=== PATIENT | male | born 1930 | race Caucasian/White ===

== ENCOUNTER 2017-06-15 11:37 | Emergency (ER) | payer MEDICARE, OTHER ==
[~2017-06-15] VITALS: Ht 172.7 cm; Wt 85.7 kg
[2017-06-15] MEDS ORDERED: KLOR-CON 1010 MEQ PO (11:54)
[2017-06-15] MEDS ORDERED: LOPRESSOR50 PO (11:54)
[2017-06-15] MEDS ORDERED: ELIQUIS2.5 MG PO (11:55)
[2017-06-15] MEDS ORDERED: GABAPENTIN 100100 MG PO (11:55)
[2017-06-15] MEDS ORDERED: PACERONE 200 M200 M1 PO (11:55)
[2017-06-15] MEDS ORDERED: CARDURA4 MG PO (11:55)
[2017-06-15] MEDS ORDERED: LASIX 20 MG TAB20 MG PO (11:56)
[2017-06-15] MEDS ORDERED: LIPITOR 20 MG T20 M1 PO (11:56)
[2017-06-15] MEDS ORDERED: PROAIR HFA8.5 GM INH (11:57)
[2017-06-15] MEDS ORDERED: PROSCAR 5MG TABL5 MG PO (11:57)
[2017-06-15] MEDS ORDERED: VENTOLIN HFA 1818 GM INH (11:58)
[2017-06-15 12:45] LABS: ABSOLUTE EOSINOPHILS 0.1 thou/uL (0.0-0.7); ABSOLUTE LYMPHOCYTES 0.6 thou/uL (0.8-5.3); ABSOLUTE MONOCYTES 0.3 thou/uL (0.0-1.2); ABSOLUTE NEUTROPHILS 2.6 thou/uL (1.6-8.1); BASOPHILS 0.8 %; EOSINOPHILS 1.5 %; HEMATOCRIT 40.6 % (42.0-52.0); HEMOGLOBIN 13.9 gm/dL (14.0-18.0); LYMPHOCYTES 16.4 %; MCH 32.1 pg (26.0-34.0); MCHC 34.3 g/dL (28.0-37.0); MCV 93.7 fL (80.0-100.0); MONOCYTES 7.2 %; MPV 7.2 fl. (7.2-11.1); NUCLEATED RBCS 0 /100WBC; PLATELET COUNT* 159 thou/uL (150-400); POLYS 74.1 %; RBC 4.34 mil/uL (4.50-6.00); RDW-CV 14.4 % (10.5-14.5); WBC 3.5 thou/uL (4.0-11.0)
[2017-06-15 12:56] LABS: APTT 27.8 Seconds (25.0-31.3); INR 1.1; PROTIME 10.7 Seconds (9.20-11.50)
[2017-06-15 13:02] LABS: ANION GAP 8 mmol/L (7-16); BUN 18 mg/dL (7-18); CHLORIDE 106 mmol/L (98-107); CO2 26 mmol/L (21-32); CREATININE 1.3 mg/dL (0.6-1.3); GLUCOSE 104 mg/dL (70-99); POTASSIUM 4.1 mmol/L (3.5-5.1); SODIUM 140 mmol/L (136-145)
[2017-06-15 13:13] LABS: ALKALINE PHOSPHATASE 93 U/L (46-116); NT-PRO BRAIN NAT PEPTIDE 763 pg/mL (<300); SGOT 20 U/L (15-37); SGPT 40 U/L (30-65); TOTAL BILIRUBIN 0.9 mg/dL (<0.1-1.0); TOTAL PROTEIN 6.1 g/dL (6.4-8.2); TROPONIN-I LEVEL <0.06 ng/mL (<0.06)
[2017-06-15] MEDS ORDERED: ANTIVERT25 MG PO (14:04)
[2017-06-15 14:25] VITALS: BP 143/59
--- NOTE | 2017-06-15 15:39 | EKG ---
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 : 1930 Requested By: Vicenta Medina Order Number: [id number] MD: Glenn Hernandez Measurements Intervals Elizabeth Rate: 70 P: IL: 263 QRS: 44 QRSD: 100 T: -35 QT: 427 QTc: 461 Interpretive Statements Atrial-paced complexes Prolonged IL interval Nonspecific repol abnormality, diffuse leads No previous ECG available for comparison Electronically Signed On 06-15-2017 15:39:19 [employer] by Glenn Hernandez [email or web address] <ELECTRONICALLY SIGNED> By: Glenn Hernandez MD, [facility] 06/15/17 [id number] Glenn Hernandez MD, FACC /EPI
== END 2017-06-15 14:27 | disposition home or self-care (01) ==
LOC: M.ERS 11:37
PROVIDERS: Nurse Practitioner Family
DX: H81.12 Benign paroxysmal vertigo, left ear (principal); I48.91 Unspecified atrial fibrillation; I10 Essential (primary) hypertension; J44.9 Chronic obstructive pulmonary disease, unspecified; Z95.0 Presence of cardiac pacemaker; Z88.8 Allergy status to other drugs, medicaments and biological substances